=== PATIENT | female | born 1980 | race Caucasian/White ===

== ENCOUNTER 2018-11-24 13:57 | Emergency (ER) | payer MEDICAID ==
[~2018-11-24] VITALS: Ht 154.9 cm; Wt 86.2 kg
[2018-11-24 14:00] VITALS: BP 142/78
--- NOTE | 2018-11-24 14:00 | NUR ---
PATIENT BIB W/C TO ER BED 8.
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
--- NOTE | 2018-11-24 14:24 | NUR ---
DR SIN AT BEDSIDE FOR PT EVAL
--- NOTE | 2018-11-24 14:30 | NUR ---
pt taken to radiology by wheel chair by residential service technician
--- NOTE | 2018-11-24 14:41 | NUR ---
Patient returned from XRAY.
--- NOTE | 2018-11-24 14:45 | NUR ---
PATIENT REPORT GIVEN TO BRIT NUNEZ.
--- NOTE | 2018-11-24 15:00 | NUR ---
pt aao x4. acting appropriately, vss, even and unlabored breathing. no signs and symptoms of distress noted.
[2018-11-24 15:25] VITALS: BP 130/86
--- NOTE | 2018-11-24 15:25 | NUR ---
Patient discharged by Dr Newell with v/s stable. Written and verbal after care instructions given and explained. Patient alert, oriented and verbalized understanding of instructions. Ambulatory with crutches steady gait. All questions addressed prior to discharge. ID band removed. Patient advised to follow up with PMD. Rx of naprosyn given. Patient educated on indication of medication including possible reaction and side effects. Opportunity to ask questions provided and answered.
== END 2018-11-24 15:25 | disposition home or self-care (01) ==
LOC: MED 13:57
DX: S83.91XA Sprain of unspecified site of right knee, initial encounter (principal); W10.8XXA Fall (on) (from) other stairs and steps, initial encounter; Y93.89 Activity, other specified; Y92.89 Other specified places as the place of occurrence of the external cause; Y99.8 Other external cause status
CPT/HCPCS: 73562; 99283

== ENCOUNTER 2020-10-24 10:00 | Emergency (ER) | payer SELFPAY ==
[~2020-10-24] VITALS: Ht 154.9 cm; Wt 90.3 kg
[2020-10-24 10:19] VITALS: BP 173/97
--- NOTE | 2020-10-24 10:58 | NUR ---
PT AMBULATED TO BED 7 WITH STEADY GAIT
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
[2020-10-24] MEDS ORDERED: KETOROLAC 30 MG/ML VIAL IM ONE (11:40)
[2020-10-24] MEDS ORDERED: IBUP-2213 PO (13:12)
[2020-10-24] MEDS ORDERED: CYCL-654 PO (13:12)
[2020-10-24 13:19] VITALS: BP 173/97
--- NOTE | 2020-10-24 13:19 | NUR ---
Patient discharged with v/s stable. Written and verbal after care instructions given and explained. Patient alert, oriented and verbalized understanding of instructions. Ambulatory with steady gait. All questions addressed prior to discharge. ID band removed. Patient advised to follow up with PMD. Rx of CYCLOBENZAPRINE HCL, IBUPROFEN given. Patient educated on indication of medication including possible reaction and side effects. Opportunity to ask questions provided and answered.
== END 2020-10-24 13:19 | disposition home or self-care (01) ==
LOC: MED 10:00
DX: S49.91XA Unspecified injury of right shoulder and upper arm, initial encounter (principal); S69.91XA Unspecified injury of right wrist, hand and finger(s), initial encounter; R20.0 Anesthesia of skin; W19.XXXA Unspecified fall, initial encounter; Y93.89 Activity, other specified; Y92.89 Other specified places as the place of occurrence of the external cause; Y99.8 Other external cause status
CPT/HCPCS: 73030; 73110; 81025; 96372; 99284; J1885